=== PATIENT | male | born 1950 | race Caucasian/White ===

== ENCOUNTER → 2017-10-24 09:02 | Outpatient (CLI) | payer MEDICARE, OTHER, SELFPAY ==
--- NOTE | 2017-10-24 08:51 | DI.REPORT_ITS ---
SYMPTOMS/DIAGNOSIS: S/P RIGHT TOTAL HIP ARTHROPLASTY PELVIS AND RIGHT HIP: Comparison is 11/07/16. There are again seen postsurgical changes of a right total hip replacement. No evidence of hardware failure is seen. The bones are intact. The soft tissues are grossly unremarkable. IMPRESSION: Stable right THR.
== END ==
PROVIDERS: PCP Nurse Practitioner; Visit Provider Student in an Organized Health Care Education/Training Program
DX: Z47.1 Aftercare following joint replacement surgery (principal); Z96.641 Presence of right artificial hip joint
CPT/HCPCS: 99213; 73502

== ENCOUNTER 2017-11-24 11:48 | Outpatient (REF) | payer MEDICARE, OTHER, SELFPAY ==
[2017-11-24 13:27] LABS: TSH (W/Ref FT4) 0.04 uIU/mL (0.358-3.74)
[2017-11-24 13:45] LABS: FREE T4 1.24 ng/dL (0.76-1.46)
== END 2017-11-24 12:08 ==
LOC: NCHCN 11:48
PROVIDERS: PCP Nurse Practitioner; Visit Provider Nurse Practitioner
DX: E03.9 Hypothyroidism, unspecified (principal)
CPT/HCPCS: 84439; 84443

== ENCOUNTER 2018-01-08 08:23 | Outpatient (REF) | payer MEDICARE, OTHER, SELFPAY ==
[2018-01-08 13:32] LABS: TSH 3.54 uIU/mL (0.358-3.74)
== END 2018-01-08 08:43 ==
LOC: NCHCN 08:23
PROVIDERS: PCP Nurse Practitioner; Visit Provider Nurse Practitioner
DX: E03.9 Hypothyroidism, unspecified (principal)
CPT/HCPCS: 84443

== ENCOUNTER 2018-03-30 09:13 | Outpatient (REF) | payer MEDICARE, OTHER, SELFPAY ==
[2018-03-30 13:13] LABS: TSH 3.31 uIU/mL (0.358-3.74)
== END 2018-03-30 09:33 ==
LOC: NCHCN 09:13
PROVIDERS: PCP Nurse Practitioner; Visit Provider Nurse Practitioner
DX: E03.9 Hypothyroidism, unspecified (principal)
CPT/HCPCS: 84443

== ENCOUNTER 2018-09-28 08:46 | Outpatient (REF) | payer MEDICARE, OTHER, SELFPAY ==
[2018-09-28 14:04] LABS: TSH (W/Ref FT4) 2.54 uIU/mL (0.36-3.74)
== END 2018-09-28 09:06 ==
LOC: NCHCN 08:46
PROVIDERS: PCP Nurse Practitioner; Visit Provider Nurse Practitioner Family
DX: E03.9 Hypothyroidism, unspecified (principal)
CPT/HCPCS: 84443

== ENCOUNTER 2019-12-29 16:07 | Outpatient (REF) | payer MEDICARE, OTHER, SELFPAY ==
[2019-12-29 22:38] LABS: HCT 39.2 % (40.0-50.0); HGB 12.6 g/dL (13.5-17.5); MCH 29.6 pg (27.0-33.0); MCHC 32.1 % (32.0-36.0); MCV 92.2 fL (80-95); MPV 10.9 fL (8.0-11.0); Platelet Count 233 10^3/uL (130-400); RBC 4.25 10^6/uL (4.36-5.78); RDW 13.2 % (11.8-14.1); RDW-SD 44.4 fL; WBC 6.25 10^3/uL (4.4-10.8)
[2019-12-29 23:07] LABS: Iron 108 ug/dL (65-175); Total Iron Binding Capacity 357 ug/dL (250-450); Transferrin Sat 30 % (20-55)
[2019-12-29 23:22] LABS: Anion Gap 7.7 mmol/L (3-11); BUN 19 mg/dL (7-18); CO2 27.3 mmol/L (21.0-32.0); CREATININE 1.05 mg/dL (0.70-1.30); Calcium 9.4 mg/dL (8.5-10.1); Chloride 106 mmol/L (98-107); Glucose 106 mg/dL (74-106); Potassium 4.7 mmol/L (3.5-5.1); Sodium 141 mmol/L (136-145); Vitamin B12 560 pg/mL (193-986)
[2019-12-31 15:59] LABS: TSH (W/Ref FT4) 2.44 uIU/mL (0.36-3.74)
[2020-01-03 16:46] LABS: PSA, Screening 1.6 ng/mL (0-4.5)
== END 2019-12-29 16:27 ==
LOC: NCHCN 16:07
PROVIDERS: PCP Nurse Practitioner Family; Visit Provider Nurse Practitioner Family
DX: D64.9 Anemia, unspecified (principal); Z00.00 Encounter for general adult medical examination without abnormal findings; E03.9 Hypothyroidism, unspecified
CPT/HCPCS: 80048; 84153; 85027; 82607; 83540; 83550; 84443

== ENCOUNTER 2019-12-30 00:47 | Outpatient (CLI) | payer MEDICARE, OTHER, SELFPAY ==
--- NOTE | 2019-12-30 | DI.RAD_ITS ---
EXAM: XR HIP RT COMPLETE AP PELVIS CLINICAL HISTORY: LOW BACK AND HIP PAIN,M54.5. TECHNIQUE: 2D digital imaging was performed. COMPARISON: CR RT HIP COMPLETE AP PELVIS from 10/24/2017 FINDINGS: BONES: There are stable post operative changes present. No fracture or dislocation. JOINTS: Stable degenerative changes are seen in the left hip and lumbar spine. No joint effusion is present. SOFT TISSUE: Normal. IMPRESSION: Stable postoperative changes. DATA REPOSITORY: RADIATION DOSE DELIVERED:
--- NOTE | 2019-12-30 | DI.RAD_ITS ---
EXAM: XR LUMBAR SPINE COMPLETE CLINICAL HISTORY: LOW BACK PAIN,M54.5. TECHNIQUE: 2D digital imaging was performed. COMPARISON: No exams were available for comparison FINDINGS: There is normal alignment of the lumbar spine. Spondylolysis or spondylolisthesis. Disc heights are well maintained. Endplate osteophytes are present at multiple levels. Degenerative changes of the facet joints are seen at L4-5 and L5-S1. No acute fracture or dislocation. Note is made of a right total hip replacement. IMPRESSION: [id number] degenerative changes in the lumbar spine. DATA REPOSITORY: RADIATION DOSE DELIVERED:
== END 2019-12-30 01:07 ==
PROVIDERS: PCP Nurse Practitioner Family; Visit Provider Nurse Practitioner Family
DX: M47.816 Spondylosis without myelopathy or radiculopathy, lumbar region (principal); M54.5 Low back pain; M25.551 Pain in right hip; M16.12 Unilateral primary osteoarthritis, left hip
CPT/HCPCS: 72110; 73502

== ENCOUNTER 2020-01-28 10:07 | Outpatient (CLI) | payer MEDICARE, OTHER, SELFPAY | END 2020-01-28 10:27 | PROVIDERS: PCP Nurse Practitioner Family; Referring Provider Nurse Practitioner Family; Visit Provider Student in an Organized Health Care Education/Training Program | DX: M47.816 Spondylosis without myelopathy or radiculopathy, lumbar region (principal); M48.061 Spinal stenosis, lumbar region without neurogenic claudication; M54.5 Low back pain; G89.29 Other chronic pain | CPT/HCPCS: 99203; 99214 ==

== ENCOUNTER 2020-02-10 00:31 | Outpatient (CLI) | payer MEDICARE, OTHER, SELFPAY ==
--- NOTE | 2020-02-10 06:45 | DI.MRI_ITS ---
EXAM: MR LUMBAR SPINE WO CLINICAL HISTORY: BACK PAIN, LUMBAR STENOSIS,DJD,M47.816,M48.061. TECHNIQUE: Multiplanar multisequence MRI of the Lumbar spine was performed. COMPARISON: CR XR LUMBAR SPINE COMPLETE from 12/30/2019 FINDINGS: Please note that the plain films reveal anatomic variation with respect to the number of vertebral keith dies of lumbar configuration. For the sake of this dictation the lower most lumbar appearing vertebr al body is called L5. Conus medullaris is at normal level. There is no evidence of conus mass nor subjacent clumping of in trathecal nerve roots to suggest arachnoiditis. The distal thecal sac appears unremarkable.There is no evidence of Tarlov intrasacral cysts nor other significant findings within the sacral canal Bones:There are no fractures nor ominous osseous lesions in the lumbar vertebral bodies and visualize d sacrum. With respect to the individual levels... T12-L1: Unremarkable L1-2: Normal disc height and signal. No disc herniation nor central canal stenosis.No foraminal steno sis L2-3: Normal disc height. No disc herniation nor central canal stenosis.No foraminal stenosis.No face t arthropathy. L3-4: Mild decreased disc height. There is mild degenerative anterolisthesis of L3 upon L4. This is related to advanced degenerative changes in both facet joints at this level. There is an element of central spinal canal stenosis due to symmetrical annular bulging and short AP dimensions the pedicles . However, there is also an additional is a significant finding here on the right side which is a de generative synovial cyst coming off of the anteromedial aspect of the right facet joint, this measuri ng 12 by 9 by 15 millimeters and causing significant impression upon the right side of the thecal sac at this level. There is also an element of ligamentum flavum hypertrophy bilaterally at this level. Although there is there is a some anterolisthesis, there does not appear to be prominent foraminal stenosis due to the lack of prominent disc height loss at this level. L4-5: Mild decreased disc height loss. Relatively symmetrical annular bulging without a dominant dis c herniation. Central canal dimensions are lower normal. There is mild bilateral foraminal stenosis mostly related to the degenerative changes facet joints, right more so than left. There is very mil d anterolisthesis of L4 upon L5. L5-S1: Preserved disc height. No significant disc herniation at this level. Central canal dimension s within normal limits. No foraminal stenosis at this level. Minimal facet joint degenerative aguilar es. Soft tissues: paraspinal soft tissues appear unremarkable. IMPRESSION: 1. Main findings here are at L 3-4 level we are there there are advanced degenerative changes in both facet joints resulting in mild anterolisthesis of L3 upon L4 plus there is a 12 x 9 x 15 millimeter degenerative synovial cyst coming off of the inner aspect of the right facet joint and causing signif icant mass effect in the epidural space compressing the right side of the thecal sac at this level. Although the osseous canal dimensions are lower normal at this level, the above described finding hoyos s result in an element of central canal stenosis. There is no prominent foraminal stenosis at this l evel. 2. Please note that if this patient is to be a surgical candidate (as is often the case with this par ticular finding described above) then close review of the MRI together with her set a plain films is recommended so as to avoid operating on the wrong level. This is because the plain films reveal vari ant vertebral anatomy numbering. 3. Other findings as above. DATA REPOSITORY:
== END 2020-02-10 00:51 ==
PROVIDERS: PCP Nurse Practitioner Family; Visit Provider Student in an Organized Health Care Education/Training Program
DX: M47.816 Spondylosis without myelopathy or radiculopathy, lumbar region (principal); M48.061 Spinal stenosis, lumbar region without neurogenic claudication; M71.38 Other bursal cyst, other site
CPT/HCPCS: 72148

== ENCOUNTER 2020-06-29 15:26 | Outpatient (REF) | payer MEDICARE, SELFPAY ==
[2020-06-29 12:40] LABS: HGB 12.2 g/dL (13.5-17.5); MCH 30.1 pg (27.0-33.0); MCV 91.4 fL (80-95); MPV 10.8 fL (8.0-11.0); Platelet Count 238 10^3/uL (130-400); RBC 4.05 10^6/uL (4.36-5.78); RDW 12.9 % (11.8-14.1); RDW-SD 43.4 fL; WBC 5.93 10^3/uL (4.4-10.8)
== END 2020-06-29 15:27 | disposition home or self-care (01) ==
LOC: NCHCN 15:26
PROVIDERS: PCP Nurse Practitioner Family; Visit Provider Nurse Practitioner Family
DX: Z01.818 Encounter for other preprocedural examination (principal); Z11.2 Encounter for screening for other bacterial diseases
CPT/HCPCS: 85027; 87081

== ENCOUNTER 2020-07-07 03:39 | Outpatient (CLI) | payer MEDICARE, SELFPAY ==
[2020-07-07 10:18] LABS: Source Nasal/Nares
[2020-07-07 14:07] LABS: COVID-19 PCR Negative (Negative)
== END 2020-07-07 03:40 | disposition home or self-care (01) ==
LOC: LBO 03:39
PROVIDERS: PCP Nurse Practitioner Family; Visit Provider Orthopaedic Surgery
DX: Z20.822 Contact with and (suspected) exposure to COVID-19 (principal); Z01.818 Encounter for other preprocedural examination
CPT/HCPCS: 87635

== ENCOUNTER 2020-12-27 08:46 | Outpatient (REF) | payer MEDICARE, OTHER, SELFPAY ==
[2020-12-27 13:09] LABS: Calculated LDL 135 mg/dL (<100); Cholesterol 202 mg/dL (<200); HDL Cholesterol 55 mg/dL (40-60); Triglyceride 60 mg/dL (<150)
== END 2020-12-27 08:47 | disposition home or self-care (01) ==
LOC: NCHCN 08:46
PROVIDERS: PCP Nurse Practitioner Family; Visit Provider Nurse Practitioner Family
DX: E78.5 Hyperlipidemia, unspecified (principal)
CPT/HCPCS: 80061

== ENCOUNTER 2021-01-03 15:28 | Outpatient (REF) | payer MEDICARE, OTHER, SELFPAY ==
[2021-01-04 08:05] LABS: BUN 18 mg/dL (7-18); Calcium 9.5 mg/dL (8.5-10.1); Glucose 83 mg/dL (74-106)
[2021-01-04 08:06] LABS: ALT 46 U/L (16-63); AST 33 U/L (15-37); Anion Gap 7.4 mmol/L (3-11); CO2 30.6 mmol/L (21.0-32.0); CREATININE 1.1 mg/dL (0.70-1.30); Chloride 106 mmol/L (98-107); Potassium 4.8 mmol/L (3.5-5.1); Sodium 144 mmol/L (136-145); TSH (W/Ref FT4) 1.66 uIU/mL (0.36-3.74)
[2021-01-05 10:38] LABS: Hepatitis C Ab w Rflx HCV PCR Negative (Negative)
== END 2021-01-03 15:29 | disposition home or self-care (01) ==
LOC: NCHCN 15:28
PROVIDERS: PCP Nurse Practitioner Family; Visit Provider Nurse Practitioner Family
DX: E03.9 Hypothyroidism, unspecified (principal); Z11.59 Encounter for screening for other viral diseases; E78.5 Hyperlipidemia, unspecified; Z12.5 Encounter for screening for malignant neoplasm of prostate
CPT/HCPCS: 80048; 86803; 84153; 84443; 84450; 84460

== ENCOUNTER 2022-03-12 09:05 | Outpatient (REF) | payer MEDICARE, OTHER, SELFPAY ==
[2022-03-12 15:14] LABS: HCT 40.9 % (40.0-50.0); HGB 12.9 g/dL (13.5-17.5); MCH 28.9 pg (27.0-33.0); MCHC 31.5 % (32.0-36.0); MCV 92 fL (80-95); Platelet Count 234 10^3/uL (130-400); RBC 4.46 10^6/uL (4.36-5.78); RDW 12.9 % (11.8-14.1); RDW-SD 42.9 fL; WBC 5.57 10^3/uL (4.4-10.8)
[2022-03-12 15:49] LABS: ALT 30 U/L (16-63); AST 31 U/L (15-37); Albumin 4.4 g/dL (3.4-5.0); Alkaline Phosphatase 74 U/L (46-116); Anion Gap 6.6 mmol/L (3-11); BUN 20 mg/dL (7-18); Bilirubin, Total 0.7 mg/dL (0.2-1.0); CO2 30.4 mmol/L (21.0-32.0); CREATININE 1.2 mg/dL (0.70-1.30); Calcium 9.8 mg/dL (8.5-10.1); Calculated LDL 152 mg/dL (<100); Chloride 106 mmol/L (98-107); Cholesterol 217 mg/dL (<200); Estimated GFR 65.46 (mL/min/1.73m2); Glucose 97 mg/dL (74-106); HDL Cholesterol 53 mg/dL (40-60); Potassium 5.1 mmol/L (3.5-5.1); Sodium 143 mmol/L (136-145); TSH (W/Ref FT4) 3.42 uIU/mL (0.36-3.74); Total Protein 7.6 g/dL (6.4-8.2); Triglyceride 64 mg/dL (<150)
[2022-03-13 10:11] LABS: PSA, Screening 1.4 ng/mL (<=4.5)
== END 2022-03-12 09:06 | disposition home or self-care (01) ==
LOC: NCHCN 09:05
PROVIDERS: PCP Nurse Practitioner Family; Visit Provider Nurse Practitioner Family
DX: E78.5 Hyperlipidemia, unspecified (principal); D64.9 Anemia, unspecified; Z12.5 Encounter for screening for malignant neoplasm of prostate
CPT/HCPCS: 80053; 80061; 84153; 85027; 84443

== ENCOUNTER 2023-04-29 15:07 | Outpatient (REF) | payer MEDICARE, OTHER, SELFPAY ==
[2023-04-29 14:22] LABS: HCT 39.2 % (40.0-50.0); HGB 12.7 g/dL (13.5-17.5); MCH 29.6 pg (27.0-33.0); MCHC 32.4 % (32.0-36.0); MCV 91 fL (80-95); Platelet Count 194 10^3/uL (130-400); RBC 4.29 10^6/uL (4.36-5.78); RDW 13.2 % (11.8-14.1); RDW-SD 44.1 fL
[2023-04-29 14:52] LABS: ALT 36 U/L (16-63); AST 34 U/L (15-37); Albumin 4.1 g/dL (3.4-5.0); Alkaline Phosphatase 78 U/L (46-116); Anion Gap 9.6 mmol/L (3-11); BUN 17 mg/dL (7-18); Bilirubin, Total 0.8 mg/dL (0.2-1.0); CO2 28.4 mmol/L (21.0-32.0); CREATININE 1.2 mg/dL (0.70-1.30); Calcium 10.5 mg/dL (8.5-10.1); Calculated LDL 96 mg/dL (<100); Chloride 106 mmol/L (98-107); Cholesterol 156 mg/dL (<200); Estimated GFR 65.06 (mL/min/1.73m2); Glucose 89 mg/dL (74-106); HDL Cholesterol 51 mg/dL (40-60); Potassium 5.5 mmol/L (3.5-5.1); Sodium 144 mmol/L (136-145); TSH (W/Ref FT4) 2.98 uIU/mL (0.36-3.74); Total Protein 7.5 g/dL (6.4-8.2); Triglyceride 47 mg/dL (<150)
== END 2023-04-29 15:08 | disposition home or self-care (01) ==
LOC: NCHCN 15:07
PROVIDERS: PCP Nurse Practitioner Family; Referring Provider Nurse Practitioner Family; Visit Provider Nurse Practitioner Family
DX: E78.5 Hyperlipidemia, unspecified (principal); F52.21 Male erectile disorder
CPT/HCPCS: 80053; 80061; 85027; 84153; 84443

== ENCOUNTER → 2023-05-14 01:36 | Outpatient (CLI) | payer MEDICARE, OTHER, SELFPAY ==
--- NOTE | 2023-05-14 | DI.US_ITS ---
Exam(s) US AAA SCREENING EXAM: US AAA SCREENING CLINICAL HISTORY: SCREENING FOR AAA,FAMILY H/O CARDIOVASCULAR DISEASE,Z82.49 COMPARISON: No exams were available for comparison FINDINGS: Abdominal Aorta: Proximal: 1.8 cm Mid: 1.8 cm Distal: 1.8 x 2.1 cm Iliacs: Right: 1.4 cm Left: 1.8 cm IMPRESSION: No evidence of abdominal aortic aneurysm. DATA REPOSITORY:
== END ==
PROVIDERS: PCP Nurse Practitioner Family; Visit Provider Nurse Practitioner Family
DX: Z13.6 Encounter for screening for cardiovascular disorders (principal); Z82.49 Family history of ischemic heart disease and other diseases of the circulatory system
CPT/HCPCS: 36415; 76706; 80048; 82306; 82728; 83540; 83550; 83970

== ENCOUNTER 2023-05-14 05:23 | Outpatient (CLI) | payer MEDICARE, OTHER, SELFPAY ==
[2023-05-14 15:19] LABS: Anion Gap 9.9 mmol/L (3-11); BUN 22 mg/dL (7-18); CO2 28.1 mmol/L (21.0-32.0); CREATININE 1.3 mg/dL (0.70-1.30); Calcium 9.3 mg/dL (8.5-10.1); Chloride 108 mmol/L (98-107); Glucose 97 mg/dL (74-106); Potassium 4.2 mmol/L (3.5-5.1); Sodium 146 mmol/L (136-145)
[2023-05-14 15:29] LABS: Iron 84 ug/dL (65-175); Total Iron Binding Capacity 335 ug/dL (250-450); Transferrin Sat 25 % (20-55)
[2023-05-14 15:55] LABS: Ferritin 91 ng/mL (26-388)
[2023-05-14 17:50] LABS: Vitamin D 25 Total 34.6 ng/mL (30-100)
[2023-05-14 22:45] LABS: Parathyroid Hormone,Intact 83 pg/mL (19-88)
== END 2023-05-14 05:24 | disposition home or self-care (01) ==
LOC: LBO 05:23
PROVIDERS: PCP Nurse Practitioner Family; Visit Provider Nurse Practitioner Family
DX: D64.9 Anemia, unspecified (principal); E83.52 Hypercalcemia
CPT/HCPCS: 36415; 80048; 82306; 82728; 83540; 83550; 83970

== ENCOUNTER 2024-05-13 22:40 | Outpatient (REF) | payer MEDICARE, OTHER, SELFPAY ==
[2024-05-13 20:49] LABS: Abs Immature Grans 0.01 10^3/uL (0.0-0.06); Absolute Basophil Count 0.04 10^3/uL (0.0-0.2); Absolute Eosinophil Count 0.13 10^3/uL (0.0-0.7); Absolute Lymphocyte Count 1.52 10^3/uL (1.2-3.4); Absolute Monocyte Count 0.57 10^3/uL (0.1-0.8); Absolute Neutrophil Count 4.16 10^3/uL (1.2-6.7); Basophils % 0.6 %; HGB 11.8 g/dL (13.5-17.5); Immature Grans % 0.2 %; Lymphocytes % 23.6 %; MCHC 32.8 % (32.0-36.0); MCV 92 fL (80-95); Monocytes % 8.9 %; Neutrophils % 64.7 %; Platelet Count 196 10^3/uL (130-400); RBC 3.93 10^6/uL (4.36-5.78); RDW 13.2 % (11.8-14.1); RDW-SD 44.7 fL; WBC 6.43 10^3/uL (4.4-10.8)
[2024-05-13 21:09] LABS: ALT 33 U/L (16-63); AST 32 U/L (15-37); Albumin 4.1 g/dL (3.4-5.0); Alkaline Phosphatase 68 U/L (46-116); Anion Gap 7.9 mmol/L (3-11); BUN 19 mg/dL (7-18); Bilirubin, Total 1.1 mg/dL (0.2-1.0); CO2 29.1 mmol/L (21.0-32.0); CREATININE 1.2 mg/dL (0.70-1.30); Calcium 9.8 mg/dL (8.5-10.1); Calculated LDL 114 mg/dL (<100); Chloride 107 mmol/L (98-107); Cholesterol 188 mg/dL (<200); Estimated GFR 64.65 (mL/min/1.73m2); Glucose 87 mg/dL (74-106); HDL Cholesterol 64 mg/dL (>or=40); Magnesium 2.2 mg/dL; Potassium 4.7 mmol/L (3.5-5.1); Sodium 144 mmol/L (136-145); TSH (W/Ref FT4) 2.14 uIU/mL (0.36-3.74); Total Protein 7.1 g/dL (6.4-8.2); Triglyceride 53 mg/dL (<150)
[2024-05-14 17:46] LABS: PSA, Screening 0.8 ng/mL (<=6.5)
== END 2024-05-13 22:41 | disposition home or self-care (01) ==
LOC: NCHCN 22:40
PROVIDERS: PCP Nurse Practitioner Family; Visit Provider Nurse Practitioner Family
DX: E02 Subclinical iodine-deficiency hypothyroidism (principal); Z12.5 Encounter for screening for malignant neoplasm of prostate; E87.5 Hyperkalemia; R25.2 Cramp and spasm; D64.9 Anemia, unspecified
CPT/HCPCS: 80053; 80061; 84153; 83735; 84443; 85025

== ENCOUNTER 2024-05-25 13:42 | Outpatient (REF) | payer MEDICARE, OTHER, SELFPAY ==
[2024-05-25 17:16] LABS: Vitamin B12 651 pg/mL (193-986)
[2024-05-25 17:22] LABS: Folate > 20.0 ng/mL (8.6-20.0)
== END 2024-05-25 13:43 | disposition home or self-care (01) ==
LOC: NCHCN 13:42
PROVIDERS: PCP Nurse Practitioner Family; Visit Provider Nurse Practitioner Family
DX: D64.9 Anemia, unspecified (principal)
CPT/HCPCS: 82607; 82746